=== PATIENT | female | born 2000 | race American Indian/Alaskan Native ===

== ENCOUNTER 2021-12-09 18:20 | Emergency (ER) | payer MEDICAID ==
[2021-12-09] MEDS ORDERED: Ondansetron 4 MG Tab.DIS PO ONE (18:21)
[2021-12-09] MEDS ORDERED: Nitrofurantoin Monohydrate/Macrocrystalline 100 MG Cap PO ONE ×2 (18:21→21:33)
[2021-12-09] MEDS ORDERED: Sodium Chloride 0.9% 1,000 ML IV ONE ×2 (19:05→20:34)
[2021-12-09] MEDS ORDERED: Ondansetron 4 MG/2 ML SDV IVPUSH ONE (19:05)
[2021-12-09] MEDS ORDERED: Acetaminophen 325 MG Tab PO ONE (19:39)
[2021-12-09 19:48] LABS: ANION GAP 13.9 mEq/L (7-13); CHLORIDE,CL 104 mmol/L (98-107); SODIUM,NA 139 mmol/L (136-145)
[2021-12-09 20:08] LABS: CORONAVIRUS COVID-19 NAA POSITIVE (NEGATIVE)
[2021-12-09] MEDS ORDERED: Ondansetron 4 MG Tab.DIS ONE (20:20)
[2021-12-09] MEDS ORDERED: Ketorolac 30 MG/ML SDV IVPUSH ONE (20:27)
[2021-12-09 21:24] VITALS: BP 115/58; PULSE 102
[2021-12-09] MEDS ORDERED: Nitrofurantoin Monohydrate/Macrocrystalline 100 MG Cap ONE (21:43)
== END 2021-12-09 21:51 | disposition home or self-care (01) ==
LOC: DL.ED 18:20
DX: N39.0 Urinary tract infection, site not specified (principal); R11.2 Nausea with vomiting, unspecified; E66.9 Obesity, unspecified; Z68.43 Body mass index [BMI] 50.0-59.9, adult; Z87.891 Personal history of nicotine dependence; Z20.822 Contact with and (suspected) exposure to COVID-19
CPT/HCPCS: 0240U; 36415; 80053; 81001; 82150; 83605; 83690; 84703; 85025; 87040; 87086; 87088; 87186; 96374; 96375; 99283; A9270; J1885; J2405; J7030

== ENCOUNTER 2022-03-10 19:03 | Emergency (ER) | payer MEDICAID ==
[2022-03-10 19:24] VITALS: BP 144/107; PULSE 88
[2022-03-10] MEDS: Ondansetron 4 MG/2 ML SDV IVPUSH ONE (19:51)
[2022-03-10] MEDS: Ketorolac 30 MG/ML SDV IVPUSH ONE (19:51)
[2022-03-10] MEDS: Sodium Chloride 0.9% 10 ML Syringe FLUSH PRN (20:07)
== END 2022-03-10 21:26 | disposition home or self-care (01) ==
LOC: DL.ED 19:03
DX: G44.209 Tension-type headache, unspecified, not intractable (principal); E66.9 Obesity, unspecified; Z68.43 Body mass index [BMI] 50.0-59.9, adult
CPT/HCPCS: 96374; 96375; 99283; J1885; J2405; J3490; 99282

== ENCOUNTER 2024-11-18 18:37 | Emergency (ER) | payer SELFPAY ==
[2024-11-18 19:02] VITALS: BP 144/86; PULSE 129
[2024-11-18] MEDS: Ondansetron 4 MG Tab.DIS PO ONE (20:07)
[2024-11-18 20:17] LABS: BASOPHILS PERCENT AUTO 0.1 % (0.0-1.0); EOSINOPHILS PERCENT AUTO 0.2 % (1.0-3.0); HEMATOCRIT 40.9 % (37.0-47.0); HEMOGLOBIN 12.5 g/dL (12.0-16.0); LYMPHOCYTES PERCENT AUTO 18.2 % (20.5-50.1); MEAN CORPUSCULAR HEMOGLOBIN 24.3 pg (27.0-34.0); MEAN CORPUSCULAR HGB CONC 30.6 g/dL (33.0-35.0); MEAN CORPUSCULAR VOLUME 79.4 fL (80-100); MONOCYTES PERCENT AUTO 6.3 % (2-8); NEUTROPHILS PERCENT AUTO 75.2 % (42.2-75.2); PLATELET COUNT,PLT 304 10^3/uL (150-450); RED BLOOD CELL COUNT 5.15 10^6/uL (4.2-5.4); WHITE BLOOD CELL COUNT,WBC 9.5 10^3/uL (5.0-10.0)
[2024-11-18 20:43] LABS: ALBUMIN 3.1 g/dL (3.4-5.0); ANION GAP 5.9 mEq/L (7-13); BILIRUBIN TOTAL 0.4 mg/dL (0.2-1.0); BUN/CREATININE RATIO 9.2 (No establ ref range); CALCIUM 9.1 mg/dL (8.5-10.1); CREATININE 0.87 mg/dL (0.55-1.02); EST CRCL DRUG DOSING (CG) 97.8 mL/min; POTASSIUM,K 3.9 mmol/L (3.5-5.1)
[2024-11-18 20:50] LABS: A/G RATIO 0.63
[2024-11-18] MEDS: Take Home: Ondansetron 4 MG Tab.DIS, 5 Tab Pack PO ONE (22:05)
== END 2024-11-18 22:26 | disposition home or self-care (01) ==
LOC: DL.ED 18:37
DX: K52.9 Noninfective gastroenteritis and colitis, unspecified (principal); E66.9 Obesity, unspecified; Z90.49 Acquired absence of other specified parts of digestive tract; Z68.44 Body mass index [BMI] 60.0-69.9, adult
CPT/HCPCS: 36415; 80053; 83690; 85025; 87428; 99284; A9270; Q0162